=== PATIENT | male | born 1975 | race Caucasian/White ===

== ENCOUNTER 2016-09-17 23:12 | Emergency (ER) | payer MEDICAID ==
[~2016-09-17] VITALS: Ht 167.6 cm; Wt 71.7 kg
[2016-09-17] MEDS ORDERED: AMOXICILLIN500 MG ORAL (23:27)
[2016-09-17] MEDS ORDERED: IBUPROFEN600 MG ORAL (23:27)
[2016-09-17 23:38] VITALS: BP 117/71
[2016-09-17] MEDS ORDERED: cefTRIAXone 1 GM in NS 55 ML IVPB ONE (23:45)
[2016-09-17] MEDS ORDERED: Dexamethasone 4mg/ml vial IVP ONE (23:45)
[2016-09-17] MEDS ORDERED: Morphine Sulfate 4mg/ml Inj IVP ONE (23:45)
[2016-09-18 01:20] VITALS: BP 115/72
[2016-09-18] MEDS ORDERED: AUGMENTIN 875-1 EAC1 ORAL (01:27)
[2016-09-18] MEDS ORDERED: HYDROCODON-ACE1 EA15 ORAL (01:27)
--- NOTE | 2016-09-18 01:28 | Emergency Room Report ---
History of Present Illness General Chief Complaint: Sore Throat Source: Patient Present Illness [facility] This is a 41-year-old male with no past medical history. He presents with chief complaint of sore throat and fever. Onset for last 3 days. Worsening. Fever was not measured. He felt hot and chills. Was putting. Complaining of throat pain mostly the right side. Also swollen nodes. Worse with swallowing. No nausea no vomiting. No diarrhea. Decreased appetite. Allergies: Coded Allergies: No Known Allergies (Unverified , 09/17/16) Patient History Past Medical History: see triage record, old chart reviewed Past Surgical History: none Pertinent Family History: none Social History: Denies: smoking Immunizations: other Reviewed Nursing Documentation: PMH: Agreed, PSxH: Agreed Nursing Documentation-PMH Past Medical History: No Stated History Review of Systems Eye: Denies: blurred vision, eye pain ENT: Reports: throat pain, throat swelling, Denies: ear pain, nose congestion Respiratory: Denies: cough, shortness of breath Cardiovascular: Denies: chest pain, palpitations Gastrointestinal: Denies: abdominal pain, diarrhea, nausea, vomiting Musculoskeletal: Denies: back pain, joint pain Skin: Denies: rash Neurological: Denies: headache, numbness Endocrine: Denies: increased thirst, increased urine Hematologic/Lymphatic: Denies: easy bruising All Other Systems: negative except mentioned in HPI Physical Exam Vital Signs Date Time Temp Pulse Resp B/P Pulse Ox O2 Delivery O2 Flow Rate FiO2 09/17/16 23:21 98.1 80 16 117/71 97 Room Air vitals normal Sp02 EP Interpretation: reviewed, normal General Appearance: well appearing, no apparent distress, alert Head: normocephalic, atraumatic Eyes: bilateral eye EOMI, bilateral eye PERRL ENT: hearing grossly normal, tonsillar swelling, pharyngeal erythema, tonsillar exudate, other - Right peritonsillar abscess. No trismus. Neck: full range of motion, supple, no meningismus, tender - Tender adenopathy Respiratory: chest non-tender, lungs clear, normal breath sounds Cardiovascular #1: regular rate, rhythm, no murmur Gastrointestinal: normal bowel sounds, non tender, no mass, no organomegaly, no bruit, non-distended Musculoskeletal: back normal, gait/station normal, normal range of motion Psychiatric: mood/affect normal Skin: warm/dry Procedures Additional Procedure Procedure Narrative Procedure: Aspiration Indication: Abscess Description: I gave patient a 2 mL of 1% lidocaine via nebulizer machine. He has good anesthesia of his throat. Using a 16-gauge needle, guarded by a cap of a test tube, I aspirated the most fluctuant area. Total of 7 mL of pus was aspirated. Patient tolerated procedure without a problem. No complication. No bleeding. He felt better. Medical Decision Making Diagnostic Impression: Primary Impression: Peritonsillar abscess ER Course Patient present with a peritonsillar abscess. There is no trismus. No evidence of retropharyngeal abscess. No evidence of Saji angina. I aspirated pus and he felt better. Antibiotics given IV. Hydration given. Dose of steroids given also. We'll discharge home. Last Vital Signs Date Time Temp Pulse Resp B/P Pulse Ox O2 Delivery O2 Flow Rate FiO2 09/18/16 00:22 98.1 09/17/16 23:38 87 16 117/71 97 Room Air Status: improved Disposition: HOME, SELF-CARE Condition: Stable Scripts Hydrocodone/Acetaminophen 5-325* (HYDROCODONE/ACETAMINOPHEN 5-325*) 1 Each Tablet 1 TAB ORAL Q6H Y for For Pain, #20 TAB 0 Refills Prov: CHELSY GLOVER M.D. 09/18/16 Amoxicillin/Potassium Clav 875-125* (AUGMENTIN 875-125 TABLET*) 1 Each Tablet 1 TAB ORAL TWICE A DAY, #14 TAB Prov: CHELSY GLOVER M.D. 09/18/16 Additional Instructions: Followup with your DrLeonidas in 2-3 days for recheck. Return if symptom worsen. CHELSY GLOVER M.D. September 18, 2016 01:28
[2016-09-18 01:37] VITALS: BP 115/72
== END 2016-09-18 01:37 | disposition home or self-care (01) ==
LOC: EMR 23:55
DX: J36 Peritonsillar abscess (principal)
CPT/HCPCS: 10021; 96360; 96361; 96374; 96375; 99284; J0696; J1100; J2270; J2405

== ENCOUNTER 2017-01-09 18:31 | Emergency (ER) | payer MEDICAID ==
[~2017-01-09] VITALS: Ht 165.1 cm; Wt 73.5 kg
[~2017-01-09 18:31] MED LIST: AMOXICILLIN500 MG ORAL; AUGMENTIN 875-1 EAC1 ORAL; HYDROCODON-ACE1 EA15 ORAL; IBUPROFEN600 MG ORAL
[2017-01-09] MEDS ORDERED: NKM (18:50)
[2017-01-09 18:57] VITALS: BP 121/78
[2017-01-09] MEDS ORDERED: Tetanus/Diptheria/Pertussis Vaccine 0.5ml Syr IM ONE (19:15)
[2017-01-09] MEDS ORDERED: Lidocaine 1% MPF 10mg/ml 5ml INJ ONE (19:15)
[2017-01-09] MEDS ORDERED: Bacitracin Oint UD TOPIC ONE (19:15)
[2017-01-09] MEDS ORDERED: IBUPROFEN600 MG ORAL (21:33)
[2017-01-09 22:08] VITALS: BP 124/79
--- NOTE | 2017-01-09 22:30 | Emergency Room Report ---
History of Present Illness General Chief Complaint: Laceration Source: Patient Present Illness [facility] The patient is a 41-year-old male presenting for laceration to the left pinky finger. He states that he was using to treat tremor which slipped and cut the finger. This occurred just prior to arrival. Pain is a 9/10 dull ache and does not radiate. He denies numbness or tingling. Pain worse with touch. He denies any other injury. Last tetanus shot is unknown. Allergies: Coded Allergies: No Known Allergies (Unverified , 09/17/16) Patient History Past Medical History: see triage record Pertinent Family History: none Reviewed Nursing Documentation: PMH: Agreed, PSxH: Agreed Nursing Documentation-PMH Past Medical History: No Stated History Review of Systems All Other Systems: negative except mentioned in HPI Physical Exam Vital Signs Date Time Temp Pulse Resp B/P (MAP) Pulse Ox O2 Delivery O2 Flow Rate FiO2 01/09/17 18:46 98.1 68 20 121/78 98 Room Air Sp02 EP Interpretation: reviewed, normal General Appearance: no apparent distress, alert, GCS 15, non-toxic Head: normocephalic, atraumatic Eyes: bilateral eye normal inspection, bilateral eye PERRL ENT: hearing grossly normal, normal pharynx, no angioedema, normal voice Musculoskeletal: normal range of motion, tender - TTP over the L distal 5th digit Neurologic: alert, oriented x3, responsive, motor strength/tone normal, sensory intact, speech normal Psychiatric: judgement/insight normal, memory normal, mood/affect normal, no suicidal/homicidal ideation Skin: laceration - linear laceration to L 5th digit 4cm in total length Lymphatic: no adenopathy Procedures Laceration/Wound Repair Laceration/Wound Repair : Consent: Verbal Wound Location: upper extremity - L 5th finger Wound's Depth, Shape: superficial, linear Wound Length (cm): 4 Wound Explored: clean Irrigated w/ Saline (ccs): 100 Betadine Prep?: Yes Anesthesia: 1% Lidocaine Volume Anesthetic (ccs): 5 Wound Debrided: minimal Wound Repaired With: sutures Suture Size/Type: 4:0, proline Number of Sutures: 6 Layer Closure?: No Sterile Dressing Applied?: Yes Splint Applied?: No Sling Applied?: No Complications: None Medical Decision Making PA Attestation Dr. Deluna is my supervising physician. Patient management was discussed with my supervising physician Diagnostic Impression: Primary Impression: Hand laceration Qualified Codes: S61.419A - Laceration without foreign body of unspecified hand, initial encounter ER Course The patient is a 41-year-old male presenting for laceration to the left pinky finger. Ddx considered include but not limited to fracture, laceration, tendon/ligament injury, avulsion, nerve damage Physical exam reveals laceration to the left fifth digit. Distal to the DIP joint on the palmar surface. 4 cm in total length due to multiple lacerations. Full active range of motion Sensation is intact X-ray the left hand unremarkable. No fracture The wound was irrigated with normal saline and cleaned with betadine. A 27g needle was used to administer 5mL of lidocaine w.o epi for digital block. 6 sutures were placed with 4-0 nylon. The wound was well approximated and the patient tolerated the procedure well. The wound was then cleaned and bacitracin was applied. The patient is discharged home with a prescription for Motrin. He will keep the area clean and dry. He is given ER precautions Other X-Ray Diagnostic Results Other X-Ray Diagnostic Results : X-Ray ordered: L hand # of Views/Limited Vs Complete: 3 View Indication: Pain EP Interpretation: Yes Interpretation: no dislocation, no soft tissue swelling, no fractures Impression: Other - soft tissue injury of the L 5th digit Electronically Signed by: DO GENIA Kunz Scribe Text I am acting as scribe for my supervising physician. My supervising physician's interpretation of the L hand xrays are there are no fractures, dislocations or soft tissue swelling. Last Vital Signs Date Time Temp Pulse Resp B/P (MAP) Pulse Ox O2 Delivery O2 Flow Rate FiO2 01/09/17 22:08 72 16 124/79 98 Room Air 01/09/17 18:57 98.1 Status: improved Disposition: HOME, SELF-CARE Condition: Improved Scripts Ibuprofen* (MOTRIN*) 600 Mg Tablet 600 MG ORAL Q8H Y for For Pain, #30 TAB 0 Refills Prov: ERICK VILLALOBOS 01/09/17 Patient Instructions: Laceration Care, Adult Additional Instructions: I discussed my findings with the patient. All questions and concerns have been answered. Treatment and medication compliance have been addressed. I advised the patient that they need to follow up with PMD in 5-7 days for wound check and suture removal. If you are unable to see PMD, return to the ED in 5-7 days. Return to ED if pain remains or worsens, you notice discharge from the wound, the wound continues to bleed, the suture/s fall out, you notice a fever or chills, or for any reason. Patient is advised to keep the wound clean and apply an antibacterial ointment. Patient verbalized understanding of discharge instructions. ERICK VILLLAOBOS Jan 09, 2017 22:30
--- NOTE | 2017-01-10 12:09 | Diagnostic Imaging Report ---
Indication: pain Findings: 3 views of the left hand were obtained. Normal bony mineralization and alignment are demonstrated. No acute fractures, erosions, or periosteal reaction are seen. Soft tissues are unremarkable. Impression: Negative examination of the left hand.
== END 2017-01-09 22:08 | disposition home or self-care (01) ==
LOC: EMR 19:00
DX: S61.217A Laceration without foreign body of left little finger without damage to nail, initial encounter (principal); W27.1XXA Contact with garden tool, initial encounter; Y92.89 Other specified places as the place of occurrence of the external cause; Z23 Encounter for immunization
CPT/HCPCS: 12002; 73130; 90471; 90715; 99284; Z7502

== ENCOUNTER 2017-11-05 20:32 | Emergency (ER) | payer MEDICAID ==
[~2017-11-05] VITALS: Ht 162.6 cm; Wt 74.4 kg
[~2017-11-05 20:32] MED LIST changes: +NKM
[2017-11-05 20:45] VITALS: BP 118/70
--- NOTE | 2017-11-05 21:24 | Emergency Room Report ---
History of Present Illness General Chief Complaint: Lower Back Pain or Injury Source: Patient Present Illness HPI This is a 42-year-old male with no past medical history. He presents with chief complaint of lower back pain. Onset 3 weeks ago. There was on and off. Localized to the left lower back. No radiation of the leg. No incontinence of bowel or urine. Worse in the morning. Better at night and at rest. No unconscious or bowel or urine. No fever chills but no nausea no vomiting. No trauma. Allergies: Coded Allergies: No Known Allergies (Unverified , 09/17/16) Patient History Past Medical History: none, see triage record, old chart reviewed Past Surgical History: none Pertinent Family History: none Social History: Reports: alcohol use - social Immunizations: other Reviewed Nursing Documentation: PMH: Agreed; PSxH: Agreed Nursing Documentation-PMH Past Medical History: No Stated History Review of Systems Eye: Denies: eye pain, blurred vision ENT: Denies: ear pain, nose congestion, throat swelling Respiratory: Denies: cough, shortness of breath Cardiovascular: Denies: chest pain, palpitations Gastrointestinal: Denies: abdominal pain, diarrhea, nausea, vomiting Musculoskeletal: Reports: back pain; Denies: joint pain Skin: Denies: rash Neurological: Denies: headache, numbness Endocrine: Denies: increased thirst, increased urine Hematologic/Lymphatic: Denies: easy bruising All Other Systems: negative except mentioned in HPI Physical Exam Vital Signs Date Time Temp Pulse Resp B/P (MAP) Pulse Ox O2 Delivery O2 Flow Rate FiO2 11/05/17 20:41 98.8 49 18 115/70 98 Room Air 98.8 vitals normal Sp02 EP Interpretation: reviewed, normal General Appearance: well appearing, no apparent distress, alert Head: normocephalic, atraumatic Eyes: bilateral eye PERRL, bilateral eye EOMI ENT: hearing grossly normal, normal pharynx Neck: full range of motion, supple, no meningismus Respiratory: chest non-tender, lungs clear, normal breath sounds Cardiovascular #1: regular rate, rhythm, no murmur Gastrointestinal: normal bowel sounds, non tender, no mass, no organomegaly, no bruit, non-distended Musculoskeletal: back normal - tenderness to the left paraspinous/flank, gait/ station normal, normal range of motion Neurologic: alert, oriented x3 Psychiatric: mood/affect normal Skin: warm/dry Medical Decision Making Diagnostic Impression: Primary Impression: Low back pain Qualified Codes: M54.5 - Low back pain Additional Impression: UTI (urinary tract infection) Qualified Codes: N30.00 - Acute cystitis without hematuria ER Course Patient presents with lower back pain. CT scan show no stone. No appendicitis. May have cystitis. We'll go and cover with antibiotics. CT/MRI/US Diagnostic Results CT/MRI/US Diagnostic Results : Imaging Test Ordered: CT abdomen and pelvis Impression Read by radiologist. Atelectasis. No bowel obstruction. No appendicitis. No stone. Last Vital Signs Date Time Temp Pulse Resp B/P (MAP) Pulse Ox O2 Delivery O2 Flow Rate FiO2 11/05/17 20:41 98.8 49 18 115/70 98 Room Air 98.8 Status: improved Disposition: HOME, SELF-CARE Condition: Stable Scripts Cephalexin* (KEFLEX*) 500 Mg Capsule 500 MG ORAL TID, #21 CAP Prov: CHELSY GLOVER M.D. 11/05/17 Ibuprofen* (MOTRIN*) 600 Mg Tablet 600 MG ORAL THREE TIMES A DAY, #30 TAB 0 Refills Prov: CHELSY GLOVER M.D. 11/05/17 Patient Instructions: Back Pain, Adult Additional Instructions: Follow-up with your doctor in 7 days. Return if worse. CHELSY GLOVER M.D. Nov 05, 2017 21:24
[2017-11-05 21:55] LABS: APPEARANCE,URINE CLEAR; BILIRUBIN, URINE NEGATIVE (NEGATIVE); GLUCOSE, URINE (UA) NEGATIVE (NEGATIVE); KETONES,URINE NEGATIVE (NEGATIVE); LEUKOCYTE ESTERASE ,URINE 1+ (NEGATIVE); NITRITE,URINE NEGATIVE (NEGATIVE); PH,URINE 6 (4.5-8.0); PROTEIN,URINE NEGATIVE (NEGATIVE); UROBILINOGEN,URINE NORMAL MG/DL (0.0-1.0)
[2017-11-05 21:57] LABS: COLOR,URINE YELLOW
[2017-11-05] MEDS ORDERED: IBUPROFEN600 MG ORAL (23:03)
[2017-11-05] MEDS ORDERED: CEPHALEXIN500 MG ORAL (23:03)
[2017-11-05 23:24] VITALS: BP 118/70
--- NOTE | 2017-11-06 09:42 | Diagnostic Imaging Report ---
Indication: Abdominal pain Technique: Continuous helical transaxial imaging of the abdomen and pelvis was obtained from the lung bases to the pubic symphysis. No intravenous contrast was administered. Coronal 2-D reformats were also obtained. Automatic Exposure Control was utilized. Total Dose length Product (DLP): 768.[address] Dose Index Volume (CTDIvol): 14.56 mGy Comparison: none Findings: Mild basal atelectasis demonstrated. No nephrolithiasis or hydronephrosis or gallstones are identified. No bowel obstruction, free fluid or free air seen. Appendix is normal. The urinary bladder is nondistended with a slightly prominent wall noted. Please correlate for cystitis. IMPRESSION: Query mild cystitis. Negative exam otherwise. [facility] has communicated the preliminary results to the Emergency Department. Their findings are largely concordant with this report. The CT scanner at [facility] is accredited by the [employer] and the scans are performed using dose optimization techniques as appropriate to a performed exam including Automatic Exposure control.
== END 2017-11-05 23:30 | disposition home or self-care (01) ==
LOC: EMR 23:01
DX: N30.00 Acute cystitis without hematuria (principal); M54.5 Low back pain
CPT/HCPCS: 74176; 81003; 99284

== ENCOUNTER 2018-06-06 15:31 | Emergency (ER) | payer MEDICAID ==
[~2018-06-06] VITALS: Ht 170.2 cm; Wt 74.8 kg
[~2018-06-06 15:31] MED LIST changes: +CEPHALEXIN500 MG ORAL
[2018-06-06] MEDS ORDERED: Bacitracin Oint UD TOPIC ONE (16:00)
[2018-06-06] MEDS ORDERED: Tetanus/Diptheria/Pertussis Vaccine 0.5ml Syr IM ONE (16:00)
[2018-06-06 16:27] VITALS: BP 118/79
--- NOTE | 2018-06-06 16:30 | NUR ---
ED Nurse Note: Pt states that he cut his finger at home with a piece of metal. Pt is AAOx4 respirations ar eeven and unlabored.
--- NOTE | 2018-06-06 16:48 | Emergency Room Report ---
History of Present Illness General Chief Complaint: Laceration Source: Patient Present Illness HPI 43-year-old male presents to the emergency department complaining of 10 out of 10 in severity pain/tenderness and laceration to the dorsum of the right third finger. Patient states that he asked up against a piece of metal which cut him. Patient denies taking blood thinning medications he denies history of immunocompromise. Patient does not believe that he is up-to-date with his tetanus vaccination. Denies paresthesias or inability to use the affected extremity. Denies trauma or fall otherwise. Allergies: Coded Allergies: No Known Allergies (Unverified , 09/17/16) Patient History Past Medical History: see triage record Past Surgical History: none Pertinent Family History: none Reviewed Nursing Documentation: PMH: Agreed; PSxH: Agreed Nursing Documentation-PMH Past Medical History: No Stated History Review of Systems All Other Systems: negative except mentioned in HPI Physical Exam Vital Signs Date Time Temp Pulse Resp B/P (MAP) Pulse Ox O2 Delivery O2 Flow Rate FiO2 06/06/18 15:41 98.1 76 18 118/79 96 Room Air Sp02 EP Interpretation: reviewed, normal General Appearance: no apparent distress, alert, GCS 15, non-toxic Head: normocephalic, atraumatic Eyes: bilateral eye normal inspection, bilateral eye PERRL ENT: hearing grossly normal, normal voice Neck: full range of motion Respiratory: lungs clear, normal breath sounds, speaking full sentences Cardiovascular #1: regular rate, rhythm, normal capillary refill Musculoskeletal: back normal, gait/station normal, normal range of motion, non- tender Neurologic: alert, oriented x3, responsive, motor strength/tone normal, sensory intact, speech normal, grossly normal Psychiatric: judgement/insight normal Skin: normal color, no rash, warm/dry, well hydrated, laceration - Right middle finger dorsal flap laceration approx 2cm cm in length Procedures Laceration/Wound Repair Laceration/Wound Repair : Consent: Verbal Wound Location: upper extremity - RMF Wound's Depth, Shape: flap Wound Length (cm): 2 Wound Explored: clean Irrigated w/ Saline (ccs): 500 Anesthesia: 1% Lidocaine Wound Repaired With: sutures Suture Size/Type: 4:0 Number of Sutures: 4 Layer Closure?: No Sterile Dressing Applied?: Yes Splint Applied?: Yes Type of Splint Applied: Finger splint Sling Applied?: No Patient Tolerated: Well Complications: None Medical Decision Making PA Attestation Dr. Sena is my supervising Physician whom patient management has been discussed with. Diagnostic Impression: Primary Impression: Laceration ER Course 43-year-old male presents to the emergency department complaining of 10 out of 10 in severity pain/tenderness and laceration to the dorsum of the right third finger. Patient states that he asked up against a piece of metal which cut him. Patient denies taking blood thinning medications he denies history of immunocompromise. Patient does not believe that he is up-to-date with his tetanus vaccination. Denies paresthesias or inability to use the affected extremity. Denies trauma or fall otherwise. Ddx considered but are not limited to laceration, tendon injury, cellulitis, amputation Vital signs: are WNL, pt. is afebrile H&PE are most consistent with: Right middle finger dorsal flap laceration approx 2cm cm in length ORDERS: none required at this time, the diagnosis is clinical ED INTERVENTIONS: -Tetanus vaccine was administered as pt. vaccination status was unknown. - The wound was copiously irrigated with normal saline, and explored for foreign body for which no FB was found. - pt. is anesthetized with 1%lidocaine - The wound was approximated and closed using 4 interrupted 4 Ethilon sutures. -Bacitracin and sterile dressing is applied. Right Middle Finger Splint applied by technology integration specialist. Pt. remains neurovascularly intact. Discussed with patient: That we make every effort to approximate the laceration as best as we can so that scarring will be as cosmetically pleasing as possible with our limited cosmetic skill set in the Emergency dept. Regardless of our best efforts there will be scarring after laceration repair. The extent of scarring is unknown at this time. DISCHARGE: At this time pt. is stable for d/c to home. Will provide printed patient care instructions, and any necessary prescriptions. Care plan and follow up instructions have been discussed with the patient prior to discharge. Last Vital Signs Date Time Temp Pulse Resp B/P (MAP) Pulse Ox O2 Delivery O2 Flow Rate FiO2 06/06/18 16:27 98.1 80 18 118/79 96 Room Air Disposition: HOME, SELF-CARE Condition: Stable Scripts Bacitracin/Polymyxin B Sulfate (BACITRACIN-POLYMYXIN OINTMENT) 28.35 Gm Oint...g. 1 APPLIC TP BID, #28.3 GM Prov: Jeniffer Antonio 06/06/18 Cephalexin* (KEFLEX*) 500 Mg Capsule 500 MG ORAL EVERY 12 HOURS for 7 Days, #14 CAP 0 Refills Prov: Jeniffer Antonio 06/06/18 Patient Instructions: Laceration Care, Adult Additional Instructions: Take medications as directed. Follow up with a Primary Care Provider in 3-5 days, even if your symptoms have resolved. --Please review list of primary care clinics, if you do not already have a primary care provider Return sooner to ED if new symptoms occur, or current symptoms become worse. - Please note that this Emergency Department Report was dictated using [employer] technology software, occasionally this can lead to erroneous entry secondary to interpretation by the dictation equipment. Jeniffer Antonio Jun 06, 2018 16:48
[2018-06-06] MEDS ORDERED: Lidocaine 1% MPF 10mg/ml 5ml INJ ONE (17:15)
[2018-06-06] MEDS ORDERED: BACITRACIN-P28.35 GM TP (17:45)
[2018-06-06] MEDS ORDERED: CEPHALEXIN500 MG ORAL (17:45)
[2018-06-06 18:15] VITALS: BP 122/75
--- NOTE | 2018-06-06 18:15 | NUR ---
ED Nurse Note: Pt. AAOx4. left with steady and all belongings. Pt. education done regarding d/c papers and prescriptions. Pt. verbalized the uderstanding of the teaching. VSS. ID armband removed.
== END 2018-06-06 18:15 | disposition home or self-care (01) ==
LOC: EMR 17:24
DX: S61.212A Laceration without foreign body of right middle finger without damage to nail, initial encounter (principal); W45.8XXA Other foreign body or object entering through skin, initial encounter; Z23 Encounter for immunization
CPT/HCPCS: 12001; 29130; 90471; 90715; 99283; Z7502